=== PATIENT | female | born 1980 | race Hispanic/Latino ===

== ENCOUNTER 2020-03-09 19:18 | Emergency (ER) | payer OTHER ==
[~2020-03-09] VITALS: Ht 165.1 cm; Wt 147.4 kg
[2020-03-09] MEDS ORDERED: SODIUM CHLORIDE 0.9% 1000ML 1,000 ML IV STA (19:37)
[2020-03-09] MEDS ORDERED: SODIUM CHLORIDE FLUSH 10 ML SYR INJ PRN (19:45)
[2020-03-09] MEDS ORDERED: ONDANSETRON HCL INJ 2MG/ML 2ML 2 MG/ML VIAL IV STA (19:45)
[2020-03-09] MEDS ORDERED: LIDOCAINE VISC 2% SOLN 15 ML UDC ONE (20:21)
[2020-03-09] MEDS ORDERED: MAGNESIUM/ALUMINUM/SIMETHICONE 30 ML UDC ONE (20:22)
[2020-03-09] MEDS ORDERED: SODIUM CHLORIDE 0.9% 1000ML 1,000 ML ONE (20:22)
[2020-03-09] MEDS ORDERED: BELLADONNA ALK/PHENOBARBITAL 5 ML UDC ONE (20:22)
[2020-03-09] MEDS ORDERED: ONDANSETRON HCL INJ 2MG/ML 2ML 2 MG/ML VIAL ONE (20:22)
[2020-03-09] MEDS ORDERED: DONNATAL/LIDOCAINE/MAALOX 30 ML SUSP PO SCH ×2 (20:30→21:00)
[2020-03-09] MEDS ORDERED: PIPER-TAZ 3.375 GM 50 ML IV ONE (20:30)
[2020-03-09] MEDS ORDERED: FAMOTIDINE 20 MG/2 ML VIAL IV STA (20:56)
[2020-03-09] MEDS ORDERED: METHYLPREDNISOLONE SOD SUCC 125 MG/2ML VIAL IV ONE (21:00)
[2020-03-09] MEDS ORDERED: METHYLPREDNISOLONE SOD SUCC 125 MG/2ML VIAL ONE (21:12)
[2020-03-09] MEDS ORDERED: FAMOTIDINE 20 MG/2 ML VIAL IV ONE (21:13)
[2020-03-09] MEDS ORDERED: PIPER-TAZ 3.375 GM 50 ML ONE (22:42)
[2020-03-09] MEDS ORDERED: IOPAMIDOL 370 MG/ML 200 ML INFUS..BTL INJ ONE (22:56)
[2020-03-10] MEDS ORDERED: PREDNISONE20 MG PO (00:07)
[2020-03-10] MEDS ORDERED: CIPRO500 MG PO (00:07)
[2020-03-10] MEDS ORDERED: ONDANSETRON ODT8 MG SL (00:07)
[2020-03-10] MEDS ORDERED: METRONIDAZOLE500 MG PO (00:07)
[2020-03-10 00:21] VITALS: BP 155/87
== END 2020-03-10 00:21 | disposition home or self-care (01) ==
LOC: FSED 19:40
DX: R10.11 Right upper quadrant pain (principal); K29.00 Acute gastritis without bleeding; N39.0 Urinary tract infection, site not specified; E86.0 Dehydration; K76.0 Fatty (change of) liver, not elsewhere classified; I10 Essential (primary) hypertension
CPT/HCPCS: 74177; 76705; 80048; 80076; 81003; 81025; 85025; 96374; 99284; J2405; J2543; J2930; J7030; Q9967

== ENCOUNTER 2020-06-02 19:28 | Emergency (ER) | payer OTHER ==
[~2020-06-02] VITALS: Ht 165.1 cm; Wt 144.7 kg
[~2020-06-02 19:28] MED LIST: CIPRO500 MG PO; METRONIDAZOLE500 MG PO; ONDANSETRON ODT8 MG SL; PREDNISONE20 MG PO
[2020-06-02] MEDS ORDERED: METHYLPREDNISOLONE SOD SUCC 125 MG/2ML VIAL IM ONE (20:15)
[2020-06-02] MEDS ORDERED: CEFTRIAXONE SOD 1 GM VIAL IM ONE (20:15)
[2020-06-02] MEDS ORDERED: METHYLPREDNISOLONE SOD SUCC 125 MG/2ML VIAL ONE (20:37)
[2020-06-02] MEDS ORDERED: LIDOCAINE HCL 1% LOCAL INJ 20 ML VIAL ONE (20:37)
[2020-06-02] MEDS ORDERED: CEFTRIAXONE SOD 1 GM VIAL ONE (20:38)
[2020-06-02 21:11] VITALS: BP 168/84
== END 2020-06-02 21:11 | disposition home or self-care (01) ==
LOC: FSED 19:40
DX: H66.91 Otitis media, unspecified, right ear (principal); I10 Essential (primary) hypertension
CPT/HCPCS: 96372; 99282; J0696; J2001; J2930

== ENCOUNTER 2022-06-11 20:33 | Emergency (ER) | payer OTHER ==
[~2022-06-11] VITALS: Ht 165.1 cm; Wt 112.5 kg
[2022-06-11] MEDS ORDERED: SODIUM CHLORIDE 0.9% 1000ML 1,000 ML IV SCH (21:45)
[2022-06-11] MEDS ORDERED: ONDANSETRON HCL INJ 2MG/ML 2ML 2 MG/ML VIAL IV STA (21:49)
[2022-06-11] MEDS ORDERED: FAMOTIDINE 20 MG/2 ML VIAL IV ONE (21:54)
[2022-06-11] MEDS ORDERED: ONDANSETRON HCL INJ 2MG/ML 2ML 2 MG/ML VIAL ONE (21:54)
[2022-06-11] MEDS ORDERED: SODIUM CHLORIDE 0.9% 1000ML 1,000 ML ONE (21:54)
[2022-06-11] MEDS ORDERED: Morphine 4mg INJECTION 4 MG/ML INJ ONE (21:54)
[2022-06-11] MEDS ORDERED: CEFTRIAXONE 1 GM VIAL ONE (21:54)
[2022-06-11] MEDS ORDERED: Morphine 4mg INJECTION 4 MG/ML INJ IV ONE (22:00)
[2022-06-11] MEDS ORDERED: CEFUROXIME500 MG PO (23:51)
[2022-06-11] MEDS ORDERED: ONDANSETRON ODT4 MG PO (23:52)
[2022-06-11] MEDS ORDERED: PANTOPRAZOLE SO40 MG PO (23:53)
[2022-06-12] MEDS ORDERED: FAMOTIDINE 20 MG/2 ML VIAL IV SCH (09:00)
== END 2022-06-12 00:15 | disposition home or self-care (01) ==
LOC: FSED 20:45
DX: R10.11 Right upper quadrant pain (principal); K29.70 Gastritis, unspecified, without bleeding; N39.0 Urinary tract infection, site not specified; I10 Essential (primary) hypertension; Z98.84 Bariatric surgery status
CPT/HCPCS: 74176; 76705; 80048; 80076; 81003; 81025; 85025; 87086; 99284; J0696; J2270; J2405; J7030

== ENCOUNTER 2023-06-16 08:26 | Emergency (ER) | payer SELFPAY ==
[~2023-06-16] VITALS: Ht 165.1 cm; Wt 108.0 kg
[~2023-06-16 08:26] MED LIST changes: +AZITHROMYCIN250 MG PO; +CEFUROXIME500 MG PO; +ONDANSETRON ODT4 MG PO; +PANTOPRAZOLE SO40 MG PO
[2023-06-16] MEDS ORDERED: ONDANSETRON HCL INJ 2MG/ML 2ML 2 MG/ML VIAL ONE (08:41)
[2023-06-16] MEDS ORDERED: Morphine 4mg INJECTION 4 MG/ML INJ ONE (08:41)
[2023-06-16] MEDS ORDERED: SODIUM CHLORIDE 0.9% 1000 ML BAG ONE (08:41)
[2023-06-16 09:14] LABS: BASOPHILS # (AUTO) 0.1 (0.0-0.1); BASOPHILS % 0.3 % (0.0-1.0); EOSINOPHILS # (AUTO) 0.1 (0.0-0.4); EOSINOPHILS % 0.5 % (0.0-6.0); HEMATOCRIT 39.6 % (34.2-44.1); HEMOGLOBIN 13.6 g/dL (12.0-16.0); LYMPHOCYTES # (AUTO) 3.6 (1.0-3.2); LYMPHOCYTES % 18.5 % (18.0-39.1); MEAN CORPUSCULAR HEMOGLOBIN 31.4 pg (28-32); MEAN CORPUSCULAR HGB CONC 34.3 g/dL (31-35); MEAN CORPUSCULAR VOLUME 91.5 fL (81-99); MONOCYTES # (AUTO) 1.4 (0.2-0.8); MONOCYTES % 7.1 % (4.4-11.3); NEUTROPHILS # (AUTO) 14.1 (2.1-6.9); NEUTROPHILS % 73.2 % (38.7-80.0); PLATELET COUNT 349 x10e3/uL (140-360); RED BLOOD COUNT 4.33 x10e6/uL (3.6-5.1); RED CELL DISTRIBUTION WIDTH 12.6 % (11.7-14.4); WHITE BLOOD COUNT 19.25 x10e3/uL (4.8-10.8)
[2023-06-16] MEDS: Morphine 4mg INJECTION 4 MG/ML INJ IV STA (09:17)
[2023-06-16] MEDS: ONDANSETRON HCL INJ 2MG/ML 2ML 2 MG/ML VIAL IV STA (09:17)
[2023-06-16] MEDS: SODIUM CHLORIDE 0.9% 1000ML 1,000 ML IV STA (09:17)
[2023-06-16 09:19] LABS: BILIRUBIN,URINE NEGATIVE (NEGATIVE); CLARITY,URINE CLEAR (CLEAR); COLOR,URINE YELLOW (YELLOW); GLUCOSE, URINE NEGATIVE (NEGATIVE); KETONES,URINE NEGATIVE (NEGATIVE); LEUKOCYTE ESTERASE ,URINE NEGATIVE (NEGATIVE); NITRITE,URINE NEGATIVE (NEGATIVE); PH,URINE 6 (5 - 7); PROTEIN,URINE DIPSTICK NEGATIVE (NEGATIVE); URINE UROBILINOGEN 0.2 mg/dL (0.2 - 1)
[2023-06-16 09:24] LABS: INR 1.09; PROTHROMBIN TIME 14.9 seconds (11.9-14.5)
[2023-06-16 09:25] LABS: PARTIAL THROMBOPLASTIN TIME 28.2 seconds (23.8-35.5)
[2023-06-16 09:31] LABS: ALANINE AMINOTRANSFERASE 41 IU/L (0-55); ALBUMIN 3.9 g/dL (3.5-5.0); ALBUMIN/GLOBULIN RATIO 0.9 (0.8-2.0); ALKALINE PHOSPHATASE 127 IU/L (40-150); ANION GAP 15.3 mmol/L (8-16); BILIRUBIN,TOTAL 0.5 mg/dL (0.2-1.2); BLOOD UREA NITROGEN 15 mg/dL (7-26); BUN/CREATININE RATIO 20 (6-25); CALCIUM 9.5 mg/dL (8.4-10.2); CARBON DIOXIDE 22 mmol/L (22-29); CHLORIDE 107 mmol/L (98-107); CREATININE, SERUM 0.76 mg/dL (0.57-1.11); EST GLOMERULAR FILTRATION RATE 99 ML/MIN (>=60); GLUCOSE 95 mg/dL (74-118); LIPASE 24 U/L (8-78); SODIUM 141 mmol/L (136-145); TOTAL PROTEIN 8.2 g/dL (6.5-8.1)
[2023-06-16 09:32] LABS: POTASSIUM 3.3 mmol/L (3.5-5.1)
[2023-06-16 09:39] LABS: BACTERIA,URINE MANY /HPF; EPITHELIAL CELLS,URINE RARE /LPF; MUCUS,URINE FEW (RARE); WBC,URINE (MAN) 0-5 /HPF (0-5)
[2023-06-16 12:01] VITALS: O2SAT 99
[2023-06-16] MEDS ORDERED: ULTRAM 50MG50 MG PO (13:14)
[2023-06-16] MEDS ORDERED: IOPAMIDOL 370 MG/ML 100 ML INFUS..BTL INJ ONE (13:30)
[2023-06-16] MEDS ORDERED: CEFDINIR300 MG PO (13:33)
== END 2023-06-16 13:42 | disposition home or self-care (01) ==
LOC: ER 08:30
DX: R30.0 Dysuria (principal); N39.0 Urinary tract infection, site not specified; S22.31XA Fracture of one rib, right side, initial encounter for closed fracture; K57.92 Diverticulitis of intestine, part unspecified, without perforation or abscess without bleeding; I10 Essential (primary) hypertension; Z98.84 Bariatric surgery status
CPT/HCPCS: 36415; 70450; 71260; 74177; 80053; 81001; 83690; 84702; 85025; 85610; 85730; 87086; 99284; J2270; J2405; J7030; Q9967

== ENCOUNTER 2024-03-23 12:17 | Emergency (ER) | payer SELFPAY ==
[~2024-03-23] VITALS: Ht 165.1 cm; Wt 106.1 kg
[~2024-03-23 12:17] MED LIST changes: +CEFDINIR300 MG PO; +ULTRAM 50MG50 MG PO
[2024-03-23] MEDS: ONDANSETRON HCL INJ 2MG/ML 2ML 2 MG/ML VIAL IV STA (12:50)
[2024-03-23] MEDS: SODIUM CHLORIDE 0.9% 1000ML 1,000 ML IV ONE (12:51)
[2024-03-23] MEDS: Morphine 2mg Syringe 2 MG/ML SYR IV ONE (12:51)
[2024-03-23 12:59] LABS: BASOPHILS % 0.5 % (0.0-1.0); EOSINOPHILS # (AUTO) 0.8 (0.0-0.4); EOSINOPHILS % 9.6 % (0.0-6.0); HEMATOCRIT 38.6 % (34.2-44.1); HEMOGLOBIN 12.1 g/dL (12.0-16.0); LYMPHOCYTES # (AUTO) 2.5 (1.0-3.2); LYMPHOCYTES % 30.6 % (18.0-39.1); MEAN CORPUSCULAR HEMOGLOBIN 30.3 pg (28-32); MEAN CORPUSCULAR HGB CONC 31.3 g/dL (31-35); MEAN CORPUSCULAR VOLUME 96.7 fL (81-99); MONOCYTES # (AUTO) 0.6 (0.2-0.8); MONOCYTES % 7.4 % (4.4-11.3); NEUTROPHILS # (AUTO) 4.2 (2.1-6.9); NEUTROPHILS % 51.8 % (38.7-80.0); PLATELET COUNT 307 x10e3/uL (140-360); RED BLOOD COUNT 3.99 x10e6/uL (3.6-5.1); RED CELL DISTRIBUTION WIDTH 13.2 % (11.7-14.4); WHITE BLOOD COUNT 8.01 x10e3/uL (4.8-10.8)
[2024-03-23] MEDS ORDERED: LOSARTAN POTASS25 MG PO (13:02)
[2024-03-23] MEDS ORDERED: BUPROPION HCL100 MG PO (13:02)
[2024-03-23 13:17] LABS: ALANINE AMINOTRANSFERASE 32 IU/L (0-55); ALBUMIN 3.5 g/dL (3.5-5.0); ALBUMIN/GLOBULIN RATIO 0.9 (0.8-2.0); ALKALINE PHOSPHATASE 135 IU/L (40-150); ANION GAP 15.7 mmol/L (8-16); BILIRUBIN,TOTAL 0.4 mg/dL (0.2-1.2); BLOOD UREA NITROGEN 12 mg/dL (7-26); BUN/CREATININE RATIO 15 (6-25); CALCIUM 8.6 mg/dL (8.4-10.2); CARBON DIOXIDE 20 mmol/L (22-29); CHLORIDE 108 mmol/L (98-107); CREATININE, SERUM 0.79 mg/dL (0.57-1.11); EST GLOMERULAR FILTRATION RATE 94 ML/MIN (>=60); GLUCOSE 97 mg/dL (74-118); LIPASE 37 U/L (8-78); POTASSIUM 3.7 mmol/L (3.5-5.1); SODIUM 140 mmol/L (136-145); TOTAL PROTEIN 7.4 g/dL (6.5-8.1)
[2024-03-23 13:33] LABS: CLARITY,URINE CLEAR (CLEAR); COLOR,URINE YELLOW (YELLOW); PH,URINE 6 (5 - 7)
[2024-03-23 13:34] LABS: BILIRUBIN,URINE NEGATIVE (NEGATIVE); GLUCOSE, URINE NEGATIVE (NEGATIVE); KETONES,URINE TRACE (NEGATIVE); LEUKOCYTE ESTERASE ,URINE NEGATIVE (NEGATIVE); NITRITE,URINE NEGATIVE (NEGATIVE); PROTEIN,URINE DIPSTICK NEGATIVE (NEGATIVE); URINE UROBILINOGEN 0.2 mg/dL (0.2 - 1)
[2024-03-23 13:37] LABS: BACTERIA,URINE FEW /HPF; EPITHELIAL CELLS,URINE FEW /LPF; RBC,URINE 0-5 /HPF (0-5); WBC,URINE (MAN) 0-5 /HPF (0-5)
[2024-03-23 14:15] VITALS: PULSE 79; RESP 16; TEMP 98.6; O2SAT 99
[2024-03-23] MEDS ORDERED: IOPAMIDOL 370 MG/ML 100 ML INFUS..BTL INJ ONE (15:12)
[2024-03-23] MEDS: FAMOTIDINE 20 MG/2 ML VIAL IV STA (15:30)
[2024-03-23] MEDS ORDERED: PANTOPRAZOLE SO40 MG PO (17:31)
== END 2024-03-23 17:50 | disposition home or self-care (01) ==
LOC: ER 12:20
DX: R10.11 Right upper quadrant pain (principal); K29.70 Gastritis, unspecified, without bleeding; R11.2 Nausea with vomiting, unspecified; I10 Essential (primary) hypertension; Z98.84 Bariatric surgery status
CPT/HCPCS: 36415; 74177; 76705; 80053; 81001; 83690; 84702; 85025; 99284; J2270; J2405; J7030; Q9967